=== PATIENT | female | born 1940 | race Caucasian/White ===

== ENCOUNTER 2017-05-18 15:29 | Inpatient (IN) | payer OTHER, BC ==
[~2017-05-18] VITALS: Ht 162.6 cm; Wt 112.5 kg
--- NOTE | ~2017-05-18 | 2DMMODE ---
[facility] [address] [place] [address] 2 D/M-MODE ECHOCARDIOGRAM Name: PILLO CORCORAN Room #: 204-P ADM IN M.R.#: [id number] Admission: 05/18/17 Attend Phys: Tyler Heck, Discharge: Date of : 38 Date of Service: 05/19/17 1254 Report #: [id number] THIS REPORT FOR: //name// APPROVED REPORT Study performed: 05/19/2017 10:37:13 EXAM: Comprehensive 2D, Doppler, and color-flow Echocardiogram Patient Location: Echo lab Room #: 204 Status: routine BSA: 2.17 HR: 130 bpm BP: 99/65 mmHg Other Information Study Quality: Technically Difficult Technically limited study due to body habitus, afib with RVR. Indications Atrial Fibrillation Cardiomyopathy Hypertension/HDD Echo Enhancing Agent Indication: Endocardial border delineation Agent(s) / Amount(s) Used: Optison 4 cc 2D Dimensions RVDd: 40.10 mm LVEF(%): 37.69 (>50%) IVSd: 13.93 (7-11mm) LVOT Diam: 16.42 (18-24mm) LVDd: 47.44 mm PWd: 16.10 (7-11mm) Ascending Ao: 33.62 (22-36mm) LVDs: 38.82 (25-40mm) Aortic Root: 23.65 mm IVC: 20.00 mm Guerrero's LVEF: 37.69 % Volumes Left Atrial Volume (Systole) Single Plane 4CH: 98.62 mL Single Plane 2CH: 73.98 mL LA ESV Index: 42.00 mL/m2 Aortic Valve AoV Peak Alvarado.: 1.61 m/s [facility] [place] [address] [place] [address] 2 D/M-MODE ECHOCARDIOGRAM Name: PILLO CORCORAN Room #: 204-P [facility] IN .R.#: [id number] Admission: 05/18/17 Attend Phys: Tyler Heck, Discharge: Date of : 38 Date of Service: 05/19/17 1254 Report #: [id number] AO Peak Gr.: 10.32 mmHg LVOT Max P.35 mmHg LVOT Max V: 0.91 m/s MILES Vmax: 1.21 cm2 Mitral Valve MV Decel. Time: 119.87 ms MV E Max Alvarado.: 1.32 m/s Pulmonary Valve PV Peak Alvarado.: 0.85 m/s PV Peak Gr.: 2.91 mmHg Tricuspid Valve TR Peak Alvarado.: 2.98 m/s RAP Estimate: 5.00 mmHg TR Peak Gr.: 35.42 mmHg PA Pressure: 40.00 mmHg Left Ventricle The left ventricle is normal size. There is normal LV segmental wall motion. Mild to moderate concentric left ventricular hypertrophy. The overall left ventricular systolic function appears normal. LVEF is 50-55%. This study is not technically sufficient to allow evaluation of the LV diastolic function due to atrial fibrillation. Right Ventricle The right ventricle is normal size. The right ventricular systolic function is normal. Atria Left atrium is dilated. Right atrium is dilated. Aortic Valve The aortic valve is normal in structure. No aortic regurgitation is present. There is no aortic valvular stenosis. Mitral Valve Mild mitral annular calcification. Moderate mitral regurgitation. No evidence of mitral valve stenosis. Tricuspid Valve The tricuspid valve is normal in structure. Moderate tricuspid regurgitation. Pulmonic Valve Pulmonic valve is not well visualized. Great Vessels [facility] [address] [place] [address] 2 D/M-MODE ECHOCARDIOGRAM Name: PILLO CORCORAN Room #: 204-P [facility] IN M.R.#: [id number] Admission: 05/18/17 Attend Phys: Tyler Heck, Discharge: Date of : 38 Date of Service: 05/19/17 1254 Report #: [id number] The aortic root is normal in size. IVC is upper limits of normal in size and collapses >50% with inspiration. Pericardium There is no pericardial effusion. <Conclusion> The overall left ventricular systolic function appears normal. There is normal LV segmental wall motion. LVEF is 50-55%. Both atria are dilated. The aortic valve is normal in structure. No aortic regurgitation or insufficiency Mild mitral annular calcification. Moderate mitral regurgitation. There is no pericardial effusion. <ELECTRONICALLY SIGNED> By: Panflio Macdonald MD, FACC 05/19/17 1254 1254 1254 Panfilo Macdonald MD, FACC /INF
--- NOTE | ~2017-05-18 | TEE ---
[facility] [place] [address] TRANSESOPHAGEAL ECHOCARDIOGRAM Name: PILLO CORCORAN Room #: 204-P [facility] IN M.R.#: [id number] Admission: 05/18/17 Attend Phys: Tyler Heck, Discharge: Date of : 38 Date of Service: 05/20/17 0933 Report #: [id number] THIS REPORT FOR: //name// APPROVED REPORT Study performed: 05/20/2017 08:19:52 EXAM: Comprehensive 2D, Doppler, and color-flow Echocardiogram Patient Location: holding Room #: 9 Status: routine BSA: 2.17 HR: 131 bpm BP: 101/42 mmHg Other Information Study Quality: Excellent Indications Atrial Fibrillation Echo Enhancing Agent Indication: Rule out Shunt Agent(s) / Amount(s) Used: Agitated Saline 7 cc Procedure After obtaining informed consent, patient underwent transesophageal echo in the [employer]. Type of Sedation : Conscious Sedation Sedation was administered by Lin Bess RN. Sedation start time: 849 Case end Time: 857 Versed (2 mg) Fentanyl (50 mcg) Echo enhancement indication: R/O Septal defect. Echo enhancement agent administered: Agitated Saline The JONN was performed without complications. Throughout the procedure, the blood pressure, pulse oximetry, cardiac rhythm, and rate were monitored. The patient tolerated the procedure without adverse effects. Recovery from conscious sedation was uneventful and vital signs were stable. Left Ventricle The left ventricle is normal size. There is normal LV segmental wall motion. Mild concentric left ventricular hypertrophy. The left [facility] [address] [place] [address] TRANSESOPHAGEAL ECHOCARDIOGRAM Name: NILO,PILLO Room #: 204-P [facility] IN M.R.#: [id number] Admission: 05/18/17 Attend Phys: Tyler Heck, Discharge: Date of : 38 Date of Service: 05/20/17 0933 Report #: [id number] ventricular systolic function is normal. The left ventricular ejection fraction is within the normal range. LVEF is 50-55%. Right Ventricle The right ventricle is normal size. The right ventricular systolic function is normal. Atria Left atrium is dilated. No masses or clots in left atrium or left atrial appendage Small amount of bidirectional shunting in the region of the fossa ovalis consistent with patent foramen ovale Right atrium is dilated. Aortic Valve The aortic valve is trileaflet, minimally sclerotic Trace aortic regurgitation. There is no aortic valvular stenosis. Mitral Valve Mild mitral annular calcification Moderate mitral regurgitation. No evidence of mitral valve stenosis. Tricuspid Valve The tricuspid valve is normal in structure. There is mild to moderate tricuspid regurgitation. The right atrial pressure is estimated at mmHg. Pulmonic Valve The pulmonary valve is normal in structure. There is no pulmonic valvular regurgitation. Great Vessels The aortic root is normal in size. The ascending aorta is normal in size. Pericardium There is no pericardial effusion. <Conclusion> The left ventricular systolic function is normal. There is normal LV segmental wall motion. LVEF is 50-55%. Marked biatrial enlargement. No masses or clots in left atrium or left atrial appendage Small amount of bidirectional shunting in the region of the fossa ovalis consistent with patent foramen ovale The aortic valve is trileaflet, minimally sclerotic, no stenosis. [facility] [address] [place] [address] TRANSESOPHAGEAL ECHOCARDIOGRAM Name: NILO,PILLO Room #: 204-P ADM IN M.R.#: [id number] Admission: 05/18/17 Attend Phys: Tyler Heck, Discharge: Date of : 38 Date of Service: 05/20/17932 Report #: [id number] Trace aortic regurgitation. Mild mitral annular calcification. Moderate mitral regurgitation. There is no pericardial effusion. <ELECTRONICALLY SIGNED> By: Panfilo Macdonald MD, FACC 05/20/17932 2 2 Panfilo Macdonald MD, FACC /INF
--- NOTE | ~2017-05-18 | CATHLAB ---
[facility] [place] [address] INVASIVE PROCEDURE REPORT Name: PILLO CORCORAN Room #: 204-P ADM IN M.R.#: [id number] Admission: 05/18/17 Attend Phys: Tyler Heck, Discharge: Date of : 38 Date of Service: 05/20/17912 Report #: [id number] THIS REPORT FOR: //name// CC: Panfilo Heck PROCEDURE: Atrial fibrillation. PROCEDURE: The potential benefits and risks of the procedure were discussed at length with the patient who understood. Full written and informed consent was obtained. The patient was sedated with intravenous Versed and fentanyl. 100 biphasic joules were applied to the chest with prompt conversion of atrial fibrillation to sinus rhythm. She remained in hemodynamically, electrically and neurologically stable condition following the procedure and was transported back to her hospital room. <ELECTRONICALLY SIGNED> By: Panfilo Macdonald MD, FACC 05/21/1732 2 8 Panfilo Macdonald MD, FACC /nt
--- NOTE | ~2017-05-18 | HC ---
[facility] [place] [address] [place] [address] CONSULTATION Name: PILLO COLLADO Room #: 204-P ADM IN M.R.#: [id number] Admission: 05/18/17 Attend Phys: Tyler Heck DO Discharge: Date of : 38 Report #: [id number] THIS REPORT FOR: //name// CC: Panfilo Heck REASON FOR CONSULTATION: Atrial fibrillation. HISTORY OF PRESENT ILLNESS: The patient is a 76-year-old woman with history of dyslipidemia and hypertension. Last , she presented with a 1-week history of increasing shortness of breath. She was seen by Dr. Julien De La Rosa who noted atrial fibrillation with a rapid ventricular response. She was admitted for further evaluation. Despite intravenous Cardizem, her heart rates were fast and difficult to control. She was subsequently transferred for further evaluation. She has received intravenous diuretic therapy during her [facility] hospitalization. She denies fevers, chills or night sweats. She denies chest heaviness or pressure. There is a family history of cardiomyopathy, details are uncertain, although the daughter has a history of atrial fibrillation as did probably Mr. Collado's father. The granddaughter has cardiomyopathy. SHE HAS AN INTOLERANCE TO PENICILLIN, SIMVASTATIN AND POSSIBLY CARDIZEM. HOME MEDICATIONS: Include metoprolol 50 mg twice daily; oxybutynin; atorvastatin 10 mg Mondays, Wednesdays, Fridays; Lasix 20 mg as needed; losartan 50 mg daily; alendronate. PAST HISTORY: Medical records have been reviewed and include history of hiatal hernia surgery, cholecystectomy, dyslipidemia. SOCIAL HISTORY: She is a nonsmoker, nondrinker. FAMILY HISTORY: Unremarkable for premature coronary disease, although is notable for cardiomyopathy. REVIEW OF SYSTEMS: All systems negative except as that noted above. PHYSICAL EXAMINATION: GENERAL: A pleasant woman who is alert and in no distress. VITAL SIGNS: Blood pressure is 120/72, heart rate of 120 and irregular, saturations are 100% on room air, temperature is 99.4 degrees. HEENT: There are neither xanthelasma, subcutaneous xanthomata, oral mucosal or digital cyanosis or kyphoscoliosis present. CHEST: Clear to auscultation and percussion. CARDIAC: Reveals an irregularly irregular rhythm with normal S1, S2. ABDOMEN: Soft and nontender. EXTREMITIES: With trace edema. Radial pulses are 2+. NEUROLOGIC: She is alert with a nonfocal exam. [facility] [address] [place] [address] CONSULTATION Name: PILLO COLLADO Room #: 204-P [facility] IN M.R.#: [id number] Admission: 05/18/17 Attend Phys: Tyler Heck DO Discharge: Date of : 39 Report #: [id number] LABORATORY DATA: EKG, atrial fibrillation with right bundle-branch block. Echocardiogram report from [facility] demonstrated an ejection fraction of 40% with biatrial enlargement, [id number] mitral regurgitation was present and a pulmonary artery pressure of about 40 mmHg. IMPRESSION: 1. Cardiomyopathy. 2. Chronic systolic heart failure. 3. Atrial fibrillation with a rapid ventricular response of uncertain chronicity. 4. Dyslipidemia. 5. Nausea, possibly related to right heart failure. 6. 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 RECOMMENDATIONS: 1. Change from metoprolol to carvedilol, resume losartan. 2. Lifelong anticoagulant therapy in light of her elevated CHADS-VASc score. 3. Consider cardioversion if unable to achieve adequate rate control. In this setting, I believe that there is a high likelihood of recurrent atrial dysrhythmias even with antiarrhythmic therapy. This atrial dysrhythmia was largely asymptomatic. Thank you for asking me to participate in her care. <ELECTRONICALLY SIGNED> By: Panfilo Macdonald MD, FACC 05/19/17 0908 1716 17 Panfilo Macdonald MD, FACC /nt
[2017-05-18 15:45] VITALS: BP 120/72
[2017-05-18] MEDS ORDERED: ONDANSETRON HCL4 M2 IV PUSH (16:20)
[2017-05-18] MEDS ORDERED: ACETAMINOPHEN-1 EAC1 PO (16:21)
[2017-05-18] MEDS ORDERED: LIPITOR10 MG PO (16:26)
[2017-05-18] MEDS ORDERED: COLACE100 MG PO (16:26)
[2017-05-18] MEDS ORDERED: FLONASE 0.05%50 MCG NASAL (16:28)
[2017-05-18] MEDS ORDERED: LOPRESSOR50 PO (16:29)
[2017-05-18] MEDS ORDERED: OXYBUTYNIN 5 MG5 M2 PO (16:29)
[2017-05-18] MEDS ORDERED: PROTONIX40 M1 PO (16:30)
[2017-05-18] MEDS ORDERED: LASIX 20 MG TAB20 MG PO (16:30)
[2017-05-18] MEDS ORDERED: ENOXAPARIN40 MG/0.1 SUBQ (16:31)
[2017-05-18] MEDS ORDERED: COMPAZINE10 MG IV (16:31)
[2017-05-18 19:35] LABS: URINE BILIRUBIN NEGATIVE (Negative); URINE BLOOD NEGATIVE (Negative); URINE CLARITY CLEAR; URINE COLOR YELLOW; URINE GLUCOSE-RANDOM* NEGATIVE (Negative); URINE KETONES NEGATIVE (Negative); URINE LEUKOCYTES NEGATIVE (Negative); URINE NITRITE NEGATIVE (Negative); URINE PROTEIN (DIPSTICK) TRACE (Negative); URINE SPECIFIC GRAVITY 1.025 (1.005-1.035); URINE UROBILINOGEN 0.2 E.U./dl (0.2-1.0)
[2017-05-18 19:59] LABS: HEMATOCRIT 36.3 % (37.0-47.0); HEMOGLOBIN 12.5 gm/dL (12.0-15.0); MCH 29.7 pg (26.0-34.0); MCHC 34.6 g/dL (28.0-37.0); MCV 85.8 fL (80.0-100.0); RBC 4.23 mil/uL (4.20-5.00); RDW 14.6 % (10.5-14.5); WBC 6.6 thou/uL (4.0-11.0)
[2017-05-18 20:14] LABS: ANION GAP 9 mmol/L (7-16); BUN 35 mg/dL (7-18); CALCIUM 7.6 mg/dL (8.5-10.1); CHLORIDE 101 mmol/L (98-107); CO2 26 mmol/L (21-32); CREATININE 1.1 mg/dL (0.6-1.0); GLUCOSE 133 mg/dL (74-106); POTASSIUM 3.8 mmol/L (3.5-5.1); SODIUM 136 mmol/L (136-145)
[2017-05-18 20:18] LABS: ALBUMIN 2.2 g/dL (3.4-5.0); SGOT 26 U/L (15-37); SGPT 38 U/L (30-65); TOTAL BILIRUBIN 1.2 mg/dL (<0.1-1.0); TOTAL PROTEIN 5.5 g/dL (6.4-8.2); TROPONIN-I < 0.04 ng/mL (<0.06)
[2017-05-18 20:45] VITALS: BP 130/59
[2017-05-18 23:20] VITALS: BP 93/46
[2017-05-19 01:16] VITALS: BP 93/48
[2017-05-19 03:50] LABS: CALCIUM 7.3 mg/dL (8.5-10.1); CREATININE 1.1 mg/dL (0.6-1.0); POTASSIUM 3.6 mmol/L (3.5-5.1)
[2017-05-19 03:56] LABS: HEMATOCRIT 32.2 % (37.0-47.0); HEMOGLOBIN 11.2 gm/dL (12.0-15.0); MCH 29.9 pg (26.0-34.0); MCHC 34.6 g/dL (28.0-37.0); MCV 86.5 fL (80.0-100.0); RBC 3.73 mil/uL (4.20-5.00); RDW 14.6 % (10.5-14.5); WBC 5.7 thou/uL (4.0-11.0)
[2017-05-19 05:11] VITALS: BP 102/63
[2017-05-19 08:00] VITALS: BP 99/65
[2017-05-19 12:00] VITALS: BP 111/61
[2017-05-19 16:00] VITALS: BP 98/56
[2017-05-19 17:54] LABS: CALCIUM 7.3 mg/dL (8.5-10.1); MAGNESIUM 2.1 mg/dL (1.8-2.4); POTASSIUM 3.9 mmol/L (3.5-5.1)
[2017-05-19 19:55] VITALS: BP 118/78
[2017-05-20] VITALS (7 sets, daily range): BP systolic 88–122; BP diastolic 43–59
[2017-05-20 04:32] LABS: HEMATOCRIT 33.5 % (37.0-47.0); HEMOGLOBIN 11.4 gm/dL (12.0-15.0); MCH 29.3 pg (26.0-34.0); MCHC 34.1 g/dL (28.0-37.0); MCV 85.8 fL (80.0-100.0); RBC 3.9 mil/uL (4.20-5.00); RDW 14.2 % (10.5-14.5); WBC 6.7 thou/uL (4.0-11.0)
[2017-05-20 04:48] LABS: CALCIUM 7.4 mg/dL (8.5-10.1); CREATININE 0.9 mg/dL (0.6-1.0); POTASSIUM 4.3 mmol/L (3.5-5.1)
[2017-05-21 04:29] VITALS: BP 129/64
[2017-05-21 07:30] VITALS: BP 160/83
[2017-05-21 11:15] VITALS: BP 125/72
[2017-05-21 15:25] VITALS: BP 144/66
[2017-05-21 20:25] VITALS: BP 138/61
[2017-05-22 04:17] LABS: CALCIUM 8.2 mg/dL (8.5-10.1); CREATININE 0.9 mg/dL (0.6-1.0)
[2017-05-22 04:44] VITALS: BP 143/50
[2017-05-22 07:45] VITALS: BP 133/61
[2017-05-22 11:34] VITALS: BP 117/47
[2017-05-22 15:47] VITALS: BP 113/61
[2017-05-22 19:42] VITALS: BP 123/53
[2017-05-23] VITALS (7 sets, daily range): BP systolic 129–176; BP diastolic 52–77
[2017-05-23] MEDS ORDERED: MIRALAX17 GM PO (10:14)
[2017-05-23] MEDS ORDERED: CARVEDILOL12.5 MG PO (10:14)
[2017-05-23] MEDS ORDERED: ELIQUIS5 MG PO (10:14)
[2017-05-23] MEDS ORDERED: COZAAR 50 MG TA50 M2 PO (10:14)
[2017-05-23] MEDS ORDERED: PACERONE 200 M200 M1 PO ×2 (10:14)
== END 2017-05-23 17:23 | disposition home or self-care (01) | DRG 291 ==
LOC: 2N 15:29 → ENTRNSPT 05-23 16:57 → 2N 05-23 17:23
PROVIDERS: Hospitalist; Internal Medicine
PROC: 5A2204Z Restoration of Cardiac Rhythm, Single (ICD-10-PCS; principal; 2017-05-20)
PROC: B24BZZ4 Ultrasonography of Heart with Aorta, Transesophageal (ICD-10-PCS; 2017-05-20)
DX: I11.0 Hypertensive heart disease with heart failure (principal); E43 Unspecified severe protein-calorie malnutrition; Z68.41 Body mass index [BMI] 40.0-44.9, adult; I48.91 Unspecified atrial fibrillation; I50.33 Acute on chronic diastolic (congestive) heart failure; I50.22 Chronic systolic (congestive) heart failure; E78.5 Hyperlipidemia, unspecified; I42.9 Cardiomyopathy, unspecified; I34.0 Nonrheumatic mitral (valve) insufficiency; Z90.49 Acquired absence of other specified parts of digestive tract; Z82.49 Family history of ischemic heart disease and other diseases of the circulatory system; Z88.8 Allergy status to other drugs, medicaments and biological substances; Z88.0 Allergy status to penicillin
CPT/HCPCS: 10081

== ENCOUNTER 2017-12-09 09:25 | Observation (INO) | payer OTHER, BC ==
[~2017-12-09] VITALS: Ht 165.1 cm; Wt 100.9 kg
--- NOTE | ~2017-12-09 | D ---
[facility] [address] [address] DISCHARGE SUMMARY Name: PILLO CORCORAN Room #: 214-P [facility] Joanie Montanez#: [id number] Admission: 12/09/17 Attend Phys: Toan Fernandez MD Discharge: 12/10/17 Date of : 39 Report #: [id number] THIS REPORT FOR: //name// CC: Panfilo Fernandez DISCHARGE DIAGNOSES: 1. Sick sinus syndrome. 2. Tachycardia-bradycardia syndrome. 3. Atrial fibrillation. 4. Complete heart block. HISTORY OF PRESENT ILLNESS: The patient is a 77-year-old female with a history diastolic heart failure and atrial fibrillation, recently cardioverted on amiodarone and beta-molly therapy. She now has symptomatic bradycardia. Beta-molly and amiodarone have been discontinued due to her bradycardia and therefore is here for dual chamber pacemaker implantation. The pacemaker was implanted without issues. She underwent a [employer] dual chamber device. HOSPITAL COURSE: The patient was monitored on telemetry overnight and did well with no documented arrhythmias. On the day of discharge, the patient was doing well with no chest pain, shortness of breath. On physical exam, heart was regular rate and rhythm. Lungs were clear to auscultation bilaterally. Incision was healing nicely and she had no lower extremity edema. On telemetry, she remained in atrial paced rhythm as well as some ventricular pacing. Device interrogation showed normal device function. A chest x-ray showed stable lead placement with no evidence of pneumothorax. As such, she was deemed stable for discharge home. Discharge instructions were reviewed. She will resume her carvedilol and amiodarone. She will also resume her Eliquis on Friday. By: 0839 [id number] Toan Fernandez MD /nt
--- NOTE | ~2017-12-09 | P ---
[facility] [place] [address] PROCEDURE REPORT Name: PILLO CORCORAN Room #: 214-P [facility] M.RJuan Jose#: [id number] Admission: 12/09/17 Attend Phys: Toan Fernandez MD Discharge: 12/10/17 Date of : 39 Report #: [id number] THIS REPORT FOR: //name// CC: Panfilo Fernandez DATE OF SERVICE: 12/10/2017 PREOPERATIVE DIAGNOSES: 1. Sick sinus syndrome. 2. A 2:1 heart block. POSTOPERATIVE DIAGNOSES: 1. Sick sinus syndrome. 2. Third-degree heart block. HISTORY: The patient is a 77-year-old with a history of diastolic heart failure as well as atrial fibrillation with rapid ventricular response recently cardioverted and now with symptomatic sinus bradycardia. She requires beta blockers and amiodarone for maintenance of sinus rhythm and therefore is here for a dual chamber pacemaker implantation. She also has documented 2:1 heart block on a laboratory monitor. ANESTHESIA: The patient underwent MAC anesthesia with no anesthesia related complications. DESCRIPTION OF PROCEDURE: The patient underwent informed consent. We discussed the details of the procedure including the risks, which include, but not limited to bleeding, infection, vascular damage, cardiac perforation, pneumothorax. She understood these risks and is willing to proceed. The patient was brought to the EP laboratory in a fasting and unsedated state, prepped and draped in a sterile fashion, received IV antibiotics prior to initiation of the procedure and underwent a venogram showing patency of the left axillary vein. Next, I injected lidocaine at the incision site. Incision was made, a pocket was created over the prepectoral fascia and access was obtained twice the left axillary vein using the extrathoracic approach with sheaths positioned using the modified Seldinger technique. Next, a lead was positioned in the right ventricular apex with adequate pacing and sensing thresholds and an atrial lead was positioned in the right atrial appendage with adequate pacing and sensing thresholds. Of note, when I would pace the atrium, there was evidence of complete heart block. The leads were sutured to prepectoral fascia using Ethibond suture. The pacemaker was connected and the pocket was irrigated with vancomycin. The pocket was closed in 3 layers using 2-0 for the deep layer, 3-0 for the mid layer, 4-0 for the subcuticular layer and surgical glue [address] [address] PROCEDURE REPORT Name: PILLO CORCORANA Room #: 214-P LILLIAN Montanez#: [id number] Admission: 12/09/17 Attend Phys: Toan Fernandez MD Discharge: 12/10/17 Date of : 39 Report #: [id number] was placed to the outer skin layer. The patient awoke neurologically and hemodynamically intact. No complications and no significant bleeding. The implanted pacemaker was a [employer] model number [id number], serial number [id number]. The atrial lead was a [employer] model number 2088TC, 52 cm, serial number [id number] with a P-wave of 3.2 millivolts, pacing impedance of 438 ohms and the pacing threshold 1.3 volts at 0.4 milliseconds. The RV lead was a [employer] model number 2088TC, 58 cm, serial number [id number] with an R-wave of 5.2 millivolts, pacing impedance of 540 ohms and the pacing threshold of 0.7 volts at 0.4 milliseconds. The device was programmed to the DDDR 60-130 mode. CONCLUSIONS: 1. Successful dual chamber pacemaker implantation. 2. Satisfactory atrial and ventricular pacing and sensing thresholds. By: 0837 1938 Toan Fernandez MD /nt
[~2017-12-09 09:25] MED LIST: ACETAMINOPHEN-1 EAC1 PO; CARVEDILOL12.5 MG PO; COLACE100 MG PO; COMPAZINE10 MG IV; COZAAR 50 MG TA50 M2 PO; ELIQUIS5 MG PO; ENOXAPARIN40 MG/0.1 SUBQ; FLONASE 0.05%50 MCG NASAL; LASIX 20 MG TAB20 MG PO; LIPITOR10 MG PO; LOPRESSOR50 PO; MIRALAX17 GM PO; ONDANSETRON HCL4 M2 IV PUSH; OXYBUTYNIN 5 MG5 M2 PO; PACERONE 200 M200 M1 PO; PROTONIX40 M1 PO
[2017-12-09] MEDS ORDERED: POTASSIUM20 PO (10:19)
[2017-12-09] MEDS ORDERED: TIROSINT100 MCG PO (10:20)
[2017-12-09] MEDS ORDERED: BENADRYL25 MG PO (10:20)
[2017-12-09 10:21] VITALS: BP 195/93
[2017-12-09 10:37] LABS: HEMATOCRIT 37.8 % (37.0-47.0); HEMOGLOBIN 12.9 gm/dL (12.0-15.0); MCH 29.1 pg (26.0-34.0); MCV 85.6 fL (80.0-100.0); RBC 4.41 mil/uL (4.20-5.00); RDW 13.7 % (10.5-14.5); WBC 9.4 thou/uL (4.0-11.0)
[2017-12-09 10:45] LABS: CALCIUM 9.5 mg/dL (8.5-10.1); CREATININE 1.3 mg/dL (0.6-1.0); POTASSIUM 3.8 mmol/L (3.5-5.1)
[2017-12-09 10:47] LABS: APTT 27.6 Seconds (24.5-32.8); PROTIME 10.7 Seconds (9.3-11.4)
[2017-12-09 19:09] VITALS: BP 136/53
[2017-12-10 00:08] VITALS: BP 130/39
[2017-12-10 04:51] VITALS: BP 132/48
[2017-12-10] MEDS ORDERED: COREG6.25 MG PO (08:30)
[2017-12-10] MEDS ORDERED: PACERONE 200 M200 M1 PO (08:30)
[2017-12-10 08:34] VITALS: BP 151/73
[2017-12-10 08:38] VITALS: BP 151/73
== END 2017-12-10 10:24 | disposition home or self-care (01) ==
LOC: CATH 09:25 → 2N 14:30
PROVIDERS: Internal Medicine Cardiovascular Disease
DX: I49.5 Sick sinus syndrome (principal); I44.2 Atrioventricular block, complete; I48.91 Unspecified atrial fibrillation; I50.30 Unspecified diastolic (congestive) heart failure
CPT/HCPCS: 62110; 62900; 70005

== ENCOUNTER → 2018-11-12 | Outpatient (CLI) | payer OTHER, BC ==
[~2018-11-12] MED LIST changes: +BENADRYL25 MG PO; +COREG6.25 MG PO; +POTASSIUM20 PO; +TIROSINT100 MCG PO
== END ==
LOC: HYPER 11-06 11:22
DX: S80.12XA Contusion of left lower leg, initial encounter (principal); R60.0 Localized edema; E78.5 Hyperlipidemia, unspecified; G47.33 Obstructive sleep apnea (adult) (pediatric); I11.0 Hypertensive heart disease with heart failure; I50.32 Chronic diastolic (congestive) heart failure; I48.0 Paroxysmal atrial fibrillation; Z90.49 Acquired absence of other specified parts of digestive tract; Z79.01 Long term (current) use of anticoagulants; Z90.710 Acquired absence of both cervix and uterus; Z95.0 Presence of cardiac pacemaker; X58.XXXA Exposure to other specified factors, initial encounter; Y93.89 Activity, other specified; Y92.89 Other specified places as the place of occurrence of the external cause; Y99.8 Other external cause status

== ENCOUNTER → 2018-12-03 | Outpatient (CLI) | payer OTHER, BC | LOC: HYPER 06:56 | DX: S80.12XD Contusion of left lower leg, subsequent encounter (principal); E78.5 Hyperlipidemia, unspecified; I11.0 Hypertensive heart disease with heart failure; I50.32 Chronic diastolic (congestive) heart failure; I48.0 Paroxysmal atrial fibrillation; R60.0 Localized edema; G47.33 Obstructive sleep apnea (adult) (pediatric); Z90.49 Acquired absence of other specified parts of digestive tract; Z90.710 Acquired absence of both cervix and uterus; Z79.01 Long term (current) use of anticoagulants; X58.XXXD Exposure to other specified factors, subsequent encounter ==

== ENCOUNTER → 2019-06-25 | Outpatient (CLI) | payer OTHER, BC | LOC: SJCVCIMAG 08:57 | DX: I08.3 Combined rheumatic disorders of mitral, aortic and tricuspid valves (principal); I11.0 Hypertensive heart disease with heart failure; I50.32 Chronic diastolic (congestive) heart failure; I48.0 Paroxysmal atrial fibrillation; R53.1 Weakness; E78.5 Hyperlipidemia, unspecified; G47.33 Obstructive sleep apnea (adult) (pediatric); Z79.01 Long term (current) use of anticoagulants; Z82.49 Family history of ischemic heart disease and other diseases of the circulatory system; Z79.899 Other long term (current) drug therapy; Z95.0 Presence of cardiac pacemaker ==

== ENCOUNTER 2020-09-20 16:42 | Inpatient (IN) | payer OTHER, BC ==
[~2020-09-20] VITALS: Ht 152.4 cm; Wt 96.6 kg
[~2020-09-20 16:42] MED LIST changes: -ASA81BEC PO; -BENICAR40 MG PO; -CYCLOBENZAPRINE5 MG PO; -DEMADEX20 MG PO; -DICLOFENAC SOD100 G1 TOP; -GABAPENTIN 100100 MG PO; -KLOR-CON 1010 MEQ PO; -NORVASC5 MG PO; -TORSEMIDE20 MG PO; -VITAMIN D350 MC3 PO
[2020-09-20 16:59] VITALS: BP 165/61
[2020-09-20] MEDS ORDERED: TORSEMIDE20 MG PO (17:44)
[2020-09-20] MEDS ORDERED: BENICAR40 MG PO (17:44)
[2020-09-20] MEDS ORDERED: KLOR-CON 1010 MEQ PO (17:45)
[2020-09-20 18:13] LABS: ABSOLUTE NEUTROPHILS 6.1 thou/uL (1.4-8.2); BASOPHILS 0.8 % (0.0-2.0); EOSINOPHILS 5.2 % (0.0-3.0); HEMATOCRIT 33.9 % (37.0-47.0); HEMOGLOBIN 11.4 gm/dL (12.0-15.0); LYMPHOCYTES 19.5 % (24.0-44.0); MCH 29.6 pg (26.0-34.0); MCHC 33.7 g/dL (28.0-37.0); MCV 87.8 fL (80.0-100.0); MONOCYTES 6.9 % (1.0-8.0); PLATELET COUNT 221 thou/uL (150-400); POLYS 67.6 % (36.0-66.0); RBC 3.86 mil/uL (4.20-5.00); RDW 13.5 % (10.5-14.5); WBC 9.1 thou/uL (4.0-11.0)
[2020-09-20 18:20] LABS: ANION GAP 8 mmol/L (7-16); BUN 42 mg/dL (7-18); CALCIUM 8.7 mg/dL (8.5-10.1); CHLORIDE 104 mmol/L (98-107); CO2 26 mmol/L (21-32); GLUCOSE 111 mg/dL (74-106); POTASSIUM 4.4 mmol/L (3.5-5.1); SODIUM 138 mmol/L (136-145)
[2020-09-20 18:30] LABS: ALBUMIN 3.4 g/dL (3.4-5.0); SGOT 26 U/L (15-37); SGPT 34 U/L (14-59); TOTAL BILIRUBIN 0.6 mg/dL (0.2-1.0); TOTAL PROTEIN 7.3 g/dL (6.4-8.2); TROPONIN-I <0.06 ng/mL (<0.06)
[2020-09-20 18:40] LABS: URINE BILIRUBIN NEGATIVE (Negative); URINE BLOOD NEGATIVE (Negative); URINE CLARITY CLEAR; URINE COLOR YELLOW; URINE GLUCOSE-RANDOM* NEGATIVE (Negative); URINE KETONES NEGATIVE (Negative); URINE LEUKOCYTES-REFLEX NEGATIVE (Negative); URINE NITRITE-REFLEX NEGATIVE (Negative); URINE PROTEIN (DIPSTICK) NEGATIVE (Negative); URINE SPECIFIC GRAVITY 1.015 (1.005-1.035); URINE UROBILINOGEN 0.2 E.U./dl (0.2-1.0)
--- NOTE | 2020-09-21 07:15 | EKG ---
[place] [address] [facility] [place] [address] ELECTROCARDIOGRAM REPORT Name: PILLO CORCORAN Room #: 170-10 ADM IN M.R.#: [id number] Admission: 09/20/20 Attend Phys: Eulogio Javier MD Discharge: Date of : 39 Report #: [id number] [facility] ED Test Date: 2020-09-20 Test Time: 17:07:51 Pat Name: PILLO CORCORAN Department: Room: 170 Gender: F Corrections Nurse: LEÓN : 1940 Requested By: Carson Barron Order Number: [id number] MD: Yasir Napoles Measurements Intervals [place] Rate: 60 P: 129 UT: 198 QRS: -62 QRSD: 165 T: 95 QT: 486 QTc: 486 Interpretive Statements Atrial-ventricular dual-paced complexes No further analysis attempted due to paced rhythm No previous ECG available for comparison Electronically Signed On 09-21-2020 7:15:25 CDT by Yasir Napoles [email or web address] <ELECTRONICALLY SIGNED> By: Yasir Napoles MD, [facility] 09/21/20 0715 1707 06 Yasir Napoles MD, FAC /EPI
[2020-09-21 08:05] VITALS: BP 144/61
--- NOTE | 2020-09-21 09:24 | NUR ---
ASSESSMENT: CM REVIEWED CHART AND MET WITH PATIENT AT THE BEDSIDE ALONG WITH HER SON WENDY AND HIS AND DAUGHTER. PT WAS ADMITTED DUE TO INCREASED WEAKNESS. PTS SON REPORTS THEY WERE RECENTLY AT [facility] AND THEN WENT TO [facility] WHERE THEY WERE LESS THEN PLEASED. HE REPORTS PT WAS THERE 2 DAYS WITHOUT ANY THERAPY AND THEN LEFT AMA. PT REPORTS SHE IS WILLING TO GO TO SNF/REHAB IF NEEDED BUT NOT BACK THERE. PT REPORTS SHE HAS ALSO HAD [facility] IN THE PAST AND REALLY LIKED THEM. PT REPORTS LIVING IN A HOME ALONE. PT REPORTS HAVING A RAMP TO ENTER THE HOME AND IT IS HANDICAP ACCESSIBLE. PT REPORTS USING A WALKER FOR AMBULATION. PT STATES SHE HAS A GRAB BAR AND CHAIR IN THE SHOWER. PT IS HAVING AN ECHO. CM DISCUSSED THAT CM WILL REVISIT WITH FAMILY ONCE PATIENT HAS WORKED WITH THERAPY AND FURTHER RECOMMENDATIONS AND WILL PROVIDE WITH LIST OF OPTIONS. CM WILL CONTINUE TO FOLLOW TO ASSIST NEEDED.
--- NOTE | 2020-09-21 10:35 | 2DMMODE ---
[facility] [place] [address] 2 D/M-MODE ECHOCARDIOGRAM Name: PILLO CORCORAN Room #: 438-P ADM IN M.R.#: [id number] Admission: 09/20/20 Attend Phys: Eulogio Javier MD Discharge: Date of : 38 Report #: [id number] THIS REPORT FOR: cc: Julien De La Rosa MD, Curtis MD Lundgren,Panfilo Song MD [facility] ~ APPROVED REPORT Study performed: 09/21/2020 09:21:16 EXAM: Comprehensive 2D, Doppler, and color-flow Echocardiogram Patient Location: Bedside Room #: 438 Status: routine BSA: 2.03 HR: 65 bpm BP: 144/61 mmHg Rhythm: Pacemaker Other Information Study Quality: Good Indications Atrial Fibrillation Pacemaker Hypertension/HDD 2D Dimensions RVDd: 48.44 mm IVSd: 12.39 (7-11mm) LVOT Diam: 18.67 (18-24mm) LVDd: 56.87 mm PWd: 11.92 (7-11mm) Ascending Ao: 33.67 (22-36mm) LVDs: 40.29 (25-40mm) Left Atrium: 47.09 (27-40mm) Aortic Root: 28.25 mm IVC: 20.00 mm Volumes Left Atrial Volume (Systole) Single Plane 4CH: 115.38 mL Single Plane 2CH: 73.44 mL LA ESV Index: 48.00 mL/m2 Aortic Valve AoV Peak Alvarado.: 1.88 m/s AO Peak Gr.: 14.20 mmHg LVOT Max P.24 mmHg [facility] [address] [place] [address] 2 D/M-MODE ECHOCARDIOGRAM Name: PILLO CORCORAN Room #: 438-P [facility] IN .R.#: [id number] Admission: 09/20/20 Attend Phys: Marie Coates Discharge: Date of : 38 Report #: [id number] LVOT Max V: 1.25 m/s MILES Vmax: 1.81 cm2 Mitral Valve E/A Ratio: 1.2 MV Decel. Time: 183.91 ms MV E Max Alvarado.: 1.18 m/s MV A Alvarado.: 0.96 m/s MV PHT: 53.33 ms IVRT: 124.57 ms Pulmonary Valve PV Peak Alvarado.: 1.15 m/s PV Peak Gr.: 5.30 mmHg Pulmonary Vein P Vein S: 0.57 m/s P Vein A: 0.30 m/s P Vein D: 0.43 m/s P Vein A Dur.: 101.5 msec P Vein S/D Ratio: 1.33 Tricuspid Valve TR Peak Alvarado.: 2.87 m/s TR Peak Gr.: 32.86 mmHg PA Pressure: 43.00 mmHg Left Ventricle The left ventricle is normal size. There is normal LV segmental wall motion. Mild concentric left ventricular hypertrophy. The left ventricular systolic function is normal. The left ventricular ejection fraction is within the normal range. LVEF is 60-65%. Grade II - pseudonormal filling dynamics. Right Ventricle Right ventricle is dilated. The right ventricular systolic function is normal. Atria Left atrium is dilated. Right atrium is dilated. Aortic Valve The aortic valve is sclerotic. No aortic regurgitation is present. There is no aortic valvular stenosis. Mitral Valve Moderate mitral annular calcification Mild mitral regurgitation. No evidence of mitral valve stenosis. [facility] [place] [address] 2 D/M-MODE ECHOCARDIOGRAM Name: PILLO CORCORAN Room #: 438-P ADM IN M.R.#: [id number] Admission: 09/20/20 Attend Phys: Marie Coates Discharge: Date of : 38 Report #: [id number] Tricuspid Valve The tricuspid valve is normal in structure. There is mild to moderate tricuspid regurgitation. Estimated PAP 40 mmHg. There is moderate pulmonary hypertension. Pulmonic Valve The pulmonary valve is normal in structure. Trace pulmonic regurgitation. Great Vessels The aortic root is normal in size. IVC is dilated and collapses >50% with inspiration. Pericardium There is no pericardial effusion. <Conclusion> The left ventricular systolic function is normal. There is normal LV segmental wall motion. LVEF is 60-65%. Grade II - pseudonormal filling dynamics. Both atria are dilated. The aortic valve is sclerotic. No aortic regurgitation or stenosis Moderate mitral annular calcification. Mild mitral regurgitation. There is mild to moderate tricuspid regurgitation. Estimated pulmonary artery pressure of 40 mmHg. There is no pericardial effusion. <ELECTRONICALLY SIGNED> By: Panfilo Macdonald MD, [facility] 09/21/205 34 34 Panfilo Macdonald MD, FAC /INF
[2020-09-21 16:23] VITALS: BP 142/59
[2020-09-21 19:56] VITALS: BP 126/54
--- NOTE | 2020-09-21 19:58 | NUR ---
Patient alert and orinted x4, up with SBA with walker, on room air, denies any pain, family at bedside throughout the day, tolerating diet well with no nausea, vitals stable, and afbriele. Call light with in reach. Bed alarm and chair alarm on. Will continue to monitor.
[2020-09-22 04:48] LABS: CALCIUM 8.1 mg/dL (8.5-10.1); CREATININE 1.3 mg/dL (0.6-1.0); POTASSIUM 4.1 mmol/L (3.5-5.1)
--- NOTE | 2020-09-22 06:48 | NUR ---
Assumed pt care at 1900. A/OX4,VSS. Up with AX1 RW/GB to bathroom. Denies pain on assessment.Wears a brief,has stress incontinence.No Bm this shift. IVF infusing via LAC IV w/o any problems voiced. Fall precautions in place.
[2020-09-22 09:31] VITALS: BP 118/67
[2020-09-22] MEDS ORDERED: CYCLOBENZAPRINE5 MG PO (09:59)
[2020-09-22] MEDS ORDERED: DICLOFENAC SOD100 G1 TOP (09:59)
[2020-09-22] MEDS ORDERED: NORVASC5 MG PO (09:59)
[2020-09-22] MEDS ORDERED: GABAPENTIN 100100 MG PO (09:59)
[2020-09-22] MEDS ORDERED: ASA81BEC PO (11:23)
--- NOTE | 2020-09-22 12:05 | NUR ---
Discussed during los, ready for dc to acute rehab today. [facility] is able to accept. Bedside nurse to call report to [phone] at discharge to acute rehab.
--- NOTE | 2020-09-22 13:33 | NUR ---
RN gave report to K[facility] on [facility].
== END 2020-09-22 14:00 | DRG 308 ==
LOC: ER 16:42 → EROBS 19:11 → 4S 19:11
PROVIDERS: Emergency Medicine; Internal Medicine; ADMIT Hospitalist; ATTEND Hospitalist
PROC: 5A09357 Assistance with Respiratory Ventilation, Less than 24 Consecutive Hours, Continuous Positive Airway Pressure (ICD-10-PCS; principal; 2020-09-21)
DX: I48.0 Paroxysmal atrial fibrillation (principal); N17.0 Acute kidney failure with tubular necrosis; D68.59 Other primary thrombophilia; I50.42 Chronic combined systolic (congestive) and diastolic (congestive) heart failure; Z68.41 Body mass index [BMI] 40.0-44.9, adult; Z20.822 Contact with and (suspected) exposure to COVID-19; E78.5 Hyperlipidemia, unspecified; M19.90 Unspecified osteoarthritis, unspecified site; E66.9 Obesity, unspecified; K59.00 Constipation, unspecified; Z60.2 Problems related to living alone; R53.81 Other malaise; N32.81 Overactive bladder; R63.8 Other symptoms and signs concerning food and fluid intake; I11.0 Hypertensive heart disease with heart failure; M54.10 Radiculopathy, site unspecified; Z86.19 Personal history of other infectious and parasitic diseases; Z90.49 Acquired absence of other specified parts of digestive tract; Z90.710 Acquired absence of both cervix and uterus; Z88.1 Allergy status to other antibiotic agents; Z88.0 Allergy status to penicillin; Z88.8 Allergy status to other drugs, medicaments and biological substances; Z95.0 Presence of cardiac pacemaker; Z82.49 Family history of ischemic heart disease and other diseases of the circulatory system; Z87.81 Personal history of (healed) traumatic fracture
CPT/HCPCS: 10195

== ENCOUNTER → 2020-09-20 | Outpatient (CLI) | payer OTHER, BC ==
[~2020-09-20] MED LIST changes: +ASA81BEC PO; +BENICAR40 MG PO; +CYCLOBENZAPRINE5 MG PO; +DEMADEX20 MG PO; +DICLOFENAC SOD100 G1 TOP; +GABAPENTIN 100100 MG PO; +KLOR-CON 1010 MEQ PO; +NORVASC5 MG PO; +TORSEMIDE20 MG PO; +VITAMIN D350 MC3 PO
== END ==
LOC: SJCVC 14:59
PROVIDERS: ATTEND Internal Medicine
DX: R94.31 Abnormal electrocardiogram [ECG] [EKG] (principal); I48.91 Unspecified atrial fibrillation; I11.0 Hypertensive heart disease with heart failure; I50.32 Chronic diastolic (congestive) heart failure; I44.1 Atrioventricular block, second degree; R29.6 Repeated falls; R26.81 Unsteadiness on feet; E78.5 Hyperlipidemia, unspecified; Z90.49 Acquired absence of other specified parts of digestive tract; Z90.710 Acquired absence of both cervix and uterus; Z88.0 Allergy status to penicillin; Z88.8 Allergy status to other drugs, medicaments and biological substances; Z79.899 Other long term (current) drug therapy; Z82.49 Family history of ischemic heart disease and other diseases of the circulatory system

== ENCOUNTER 2020-09-22 10:08 | Inpatient (IN) | payer OTHER, BC ==
[~2020-09-22] VITALS: Ht 162.6 cm; Wt 96.2 kg
[~2020-09-22 10:08] MED LIST changes: +BENICAR40 MG PO; +CYCLOBENZAPRINE5 MG PO; +DICLOFENAC SOD100 G1 TOP; +GABAPENTIN 100100 MG PO; +KLOR-CON 1010 MEQ PO; +NORVASC5 MG PO; +TORSEMIDE20 MG PO
[2020-09-22] MEDS ORDERED: ASA81BEC PO (11:23)
[2020-09-22 14:00] VITALS: BP 134/53
--- NOTE | 2020-09-22 14:00 | NUR ---
PT ARRIVED VIW W/C TO ROOM. PT IN APRIL 23 FX LEFT ANKLE. PT STATED SHE DOES HAVE EPISODES OF FALLING DUE TO WEAKNESS AND BALANCE AND SHE STATED DEHYDRATION. PT STATED SHE DOES DRINK WATER AT HOME AND PROPEL. PT STATED SHE LAID THERE FOR SIX HOURS WHEN SHE FEEL. PT STATED SHE WASN'T IN PAIN AND DIDN'T CALL 911. PT STATED SHE WOULD OF CALLED 911 IF SHE WAS IN PAIN. PT HAS HX OF FALLING AT HOME. PT LIVES BY HERSELF AND DOES HAVE NEIGHBORS THAT ASSIST AND ALSO HER SON WENDY IS AVAILABLE. PT USES WALKER TO AMBULATE. PT HAS BRUISES TO ARMS AND WAS ON ELIQUIS. PT HAS PACEMAKER AND HX OF CHF. PT USES CPAP AT HS. PT DIDN'T HAVE HER OWN CPAP HERE. PT WAS A [employer] FOR 31 YEARS. SHE LOST HER TO STROKE AND PASSED 2011.
[2020-09-22 19:30] VITALS: BP 124/50
--- NOTE | 2020-09-23 02:42 | NUR ---
assumed care approx 1900 evening 09/22. pt alert and oriented x4, pleasant and cooperative sitting up in recliner at change of shift. pt denied complaints. pt took hs meds with water tolerating well. pt now in bed with cpap machine on appears to be sleeping soundly. bed alarm on and call light in reach. will continue to monitor.
[2020-09-23 05:04] LABS: HEMATOCRIT 30.5 % (37.0-47.0); HEMOGLOBIN 10.3 gm/dL (12.0-15.0); MCHC 33.7 g/dL (28.0-37.0); RBC 3.43 mil/uL (4.20-5.00); RDW 14.2 % (10.5-14.5); WBC 6.2 thou/uL (4.0-11.0)
[2020-09-23 05:28] LABS: CALCIUM 8.4 mg/dL (8.5-10.1); CREATININE 1.1 mg/dL (0.6-1.0); POTASSIUM 4.4 mmol/L (3.5-5.1)
[2020-09-23 08:00] VITALS: BP 131/65
--- NOTE | 2020-09-23 16:04 | NUR ---
ASSUMED C/O PT AT 0700. PT A&OX4. PT WILLINGLY WORKS WITH THERAPIES. PT. UP WITH SBA, GB, AND WALKER. PT. C/O PAIN TO LEFT ANKLE, PAIN PILLS OFFERED BUT REFUSED. PT. DOES NOT WANT TO USE THE VOLTERAN GEL. PT USES CALL LIGHT APPROPRIATELY. BED ALARMS AND CHAIR ALARMS ACTIVATED. PT. ON RA, TOLERATING HEART HEALTHY DIET. WILL CONTINUE TO MONITOR.
[2020-09-23 19:24] VITALS: BP 135/60
--- NOTE | 2020-09-24 01:31 | NUR ---
assumed care approx 1900 evening 09/23. pt alert and oriented x4, however forgetful at times. pt pleasant and cooperative. pt took hs med with water tolerating well. pt appears to be sleeping soundly with cpap machine on. bed alarm on and call light in reach. will continue to monitor.
[2020-09-24 10:23] VITALS: BP 101/50
--- NOTE | 2020-09-24 16:36 | NUR ---
ASSUMED C/O PT AT 0700. PT. A&OX4. PT UP TO BATHROOM, BRUSHED TEETH, WASHED SELF, WITH SUPERVISION. PT. TOLERATING HEART HEALTHY DIET. PT. GAIT STEADY, NEEDS EXTRA TIME, USES GB AND WALKER. PT. DOES NOT WANT TO TAKE GABAPENTIN. STATES SHE IS ALLERGIC TO A LOT OF THINGS AND DOES NOT WANT TO START ANYTHING NEW. PT. IS CALL LIGHT APPROPRIATE. BED ALARM AND CHAIR ALARM ARE ACTIVATED. WILL CONTINUE TO MONITOR.
[2020-09-24 19:03] VITALS: BP 146/57
--- NOTE | 2020-09-24 23:24 | NUR ---
PT ALERT AND ORIENTED X 4. AMB TO BR WITH WALKER AND ASSIST X 1 WITHOUT DIFFICULTY. CPAP ON DURING THE NIGHT. PT REFUSED OXYBUTIN AND GABAPENTIN AT HS. ALSO REFUSED VOLTAREN GEL. PT DENIES PAIN OR DISCOMFORT. BED ALARM ON FOR SAFETY. PT APPEARS TO BE SLEEPING ON HOURLY ROUNDS.
[2020-09-25 07:15] VITALS: BP 151/66
--- NOTE | 2020-09-25 10:39 | NUR ---
Chart review. unable to visit with deshawn marc she is working with therapy outside her room. She lives home alone, in house. has ramp, walker, cpap, shower chair and grab bars. she recently was at skilled rehab, [facility], where she was not happy and left AMA. will cont following as needed for dc needs.
--- NOTE | 2020-09-25 13:03 | NUR ---
Nutrition: pt admitted with general debility with falls to rehab unit. PMH: HTN, HLD, hepatitis, A, choly, obesity. Seen due to high risk screen for weight loss, poor intake. Pt reports eating 100% of meals other than 2 meals she didn't eat well. Understands how to order meals. Noted weight down 10# from weights in 2018, not significant. Pt reports no recent weight change. Vitamin D 24.9, REC add vitamin D supplement. Low nutrition risk.
--- NOTE | 2020-09-25 13:09 | NUR ---
Nutrition: Vitamin D deficiency noted. REC supplement
--- NOTE | 2020-09-25 18:14 | NUR ---
ASSUMED PATIENT CARE AT 0700. A/O X4. UP WITH STANDBY ASSISTED. DENIES PAIN. VSS. PROGRESSING TOWARDS POC GOALS.
[2020-09-25 19:14] VITALS: BP 131/49
--- NOTE | 2020-09-25 23:20 | NUR ---
PT ALERT AND ORIENTED X 4. AMB TO BR WITH WALKER AND ASSIST X 1 WITHOUT DIFFICULTY. CPAP ON DURING THE NIGHT. PT DENIES PAIN OR DISCOMFORT. BED ALARM ON FOR SAFETY. PT APPEARS TO BE SLEEPING ON HOURLY ROUNDS.
[2020-09-26 07:15] VITALS: BP 146/67
[2020-09-26] MEDS ORDERED: DEMADEX20 MG PO (13:27)
--- NOTE | 2020-09-26 13:57 | NUR ---
Team meeting. reported upper and lower ext swelling. Family lives hour away. life alert requested by deshawn. work on pt with medication management. BPCI. dc 10/03 HH ( pt, ot, nursing), magen family assist in home. speech eval while on acute rehab.
[2020-09-26 19:32] VITALS: BP 125/61
--- NOTE | 2020-09-27 01:51 | NUR ---
assumed care approx 1900 evening 09/26. pt alert and oriented x4, pleasant and cooperative. pt sitting up in recliner at change of shift watching baseball game on tv. pt took hs meds with water tolerating well. pt wearing cpap at present and appears to be sleeping soundly. pulse oximeter in place. bed alarm on and call light in reach. will continue to monitor.
[2020-09-27 07:15] VITALS: BP 162/62
--- NOTE | 2020-09-27 09:19 | NUR ---
PT WORKING WITH THERAPY AT THIS TIME. PT UP WITH WALKER WITH STAND-BY ASSIST AND STEADY GAIT. PT DENIES ANY PAIN. PT LUNGS CLEAR. PT USES CPAP FOR HS. PT LEFT ANKLE IS TURNED WHEN WALKING, PHYSICAL THERAPY IS WORKING ON GETTING HER A BRACE TO HELP STABALIZE LEFT ANKLE AND RIGHT PLACEMENT.
[2020-09-27 19:58] VITALS: BP 141/52
--- NOTE | 2020-09-28 03:24 | NUR ---
assumed care approx 1900 evening 09/27. pt alert and oriented x4, pleasant and cooperative. pt sitting in chair in room resting with brace on left foot. pt took meds with water tolerating well. pt appears to be sleeping with cpap on. bed alarm on and call light in reach. will continue to monitor.
[2020-09-28 08:18] VITALS: BP 126/46
--- NOTE | 2020-09-28 08:48 | NUR ---
PT SITTING UP IN CHAIR THIS AM. PT HAS BRACE TO LEFT ANKLE. PT USES WALKER WHEN AMBULATING WITH STEADY GAIT. PT USES PADS FOR STRESS INCON. PT DENIES ANY PAIN AT THIS TIME. PT KEEPS LEGS ELEVATED WHEN SITTING IN RECLINER. PT LUNGS CLEAR. NO COMPLAINTS AT THIS TIME.
--- NOTE | 2020-09-28 14:30 | NUR ---
Nutrition: Pt admitted with general debility with falls. PMH: HTN, HLD, hep A, choly, obesity. High risk screen for poor intake, weight loss. Pt had 2 meals she ate poorly initially on admit. Otherwise eating 75-100% of all meals. Understands menu ordering process. Weights down 10# from 2018-not significant. Vitamin D level low, RD recommended supplement which has been ordered. Low nutrition risk.
--- NOTE | 2020-09-28 14:30 | NUR ---
PT UP WALKING WITH THERAPY AND PT MOVED TO 501 AFTER WALK. PT FINISHED THERAPY IN NEW ROOM.
[2020-09-28 19:01] VITALS: BP 152/74
--- NOTE | 2020-09-29 02:51 | NUR ---
ASSUMED CARE AT 1900 OF 09/28. PATIENT IS A&OX4, FORGETFULL AT TIMES. DENIES PAIN. STANDBY ASSIST USING GB AND 4WW TO BATHROOM. USES CPAP OVERNIGHT. ORTHOTIC BRASE TO LEFT ANKLE WAS REMOVED BEFORE BED. CALL LIGHT W/IN REACH. NO CONCERNS AT THIS TIME WILL CONTINUE TO MONITOR.
[2020-09-29 06:02] LABS: ABSOLUTE NEUTROPHILS 3.6 thou/uL (1.4-8.2); BASOPHILS 0.4 % (0.0-2.0); EOSINOPHILS 8.9 % (0.0-3.0); HEMATOCRIT 30.7 % (37.0-47.0); HEMOGLOBIN 10.3 gm/dL (12.0-15.0); LYMPHOCYTES 22.3 % (24.0-44.0); MCH 29.8 pg (26.0-34.0); MCHC 33.5 g/dL (28.0-37.0); MCV 88.9 fL (80.0-100.0); PLATELET COUNT 155 thou/uL (150-400); POLYS 62.4 % (36.0-66.0); RBC 3.46 mil/uL (4.20-5.00); RDW 14.6 % (10.5-14.5); WBC 5.7 thou/uL (4.0-11.0)
[2020-09-29 06:26] LABS: CALCIUM 8.4 mg/dL (8.5-10.1); CREATININE 1.1 mg/dL (0.6-1.0); MAGNESIUM 2.1 mg/dL (1.8-2.4); POTASSIUM 4.4 mmol/L (3.5-5.1)
[2020-09-29 07:41] VITALS: BP 145/70
--- NOTE | 2020-09-29 09:05 | NUR ---
ASSUMED CARE OF PT AT 0715. PT IS A&OX4. WAS REPORTED THAT PT CAN BE FORGETFUL. IS ON ROOM AIR. DENIES PAIN IN L ANKLE. IS WT BEARING NISH. IS STABLE. IS UP WITH STANDBY ASSIST, GB, WALKER. FALL PRECAUTIONS & HOURLY ROUNDING CONTINUED THIS SHIFT. LABS & VITALS REVIEWED. PT IS UP IN RECLINER. ALARM IN PLACE. CALL LIGHT WITHIN REACH. WILL CONTINUE TO MONITOR.
[2020-09-29] MEDS ORDERED: GABAPENTIN 100100 MG PO (09:10)
[2020-09-29] MEDS ORDERED: VITAMIN D350 MC3 PO (09:14)
[2020-09-29] MEDS ORDERED: BENICAR40 MG PO (09:17)
--- NOTE | 2020-09-29 09:58 | NUR ---
Cont. following for dcp, still anticipating dc on 10/03. BPCI. HH (pt., Ot, nursing) and maximize family assist in the home.
[2020-09-29 20:32] VITALS: BP 148/66
--- NOTE | 2020-09-30 00:57 | NUR ---
ASSUMED CARE AT 1900 OF 09/29, PATIENT IS A&OX4 AND ABLE TO MAKE NEEDS KNOWN. PATIENT REMEBERED TO CALL FOR HER HS MEDICATIONS. STANDBY ASSIST USING GB AND FWW FOR TRANSFERS AND AMBULATION. PATIENT INDEPENDENTLY PERFORMED ADLS W/ SUPERVISION BEFORE GOING TO BED. DENIES PAIN OR SOB. REQUESTED TO HAVE ORTHOTIC BRACE ON LEFT ANKLE REMOVED AT HS. NO COCNERNS AT THIS TIME WILL CONTINUE TO MONITOR.
[2020-09-30 08:00] VITALS: BP 153/58
[2020-09-30 08:50] VITALS: BP 153/58
--- NOTE | 2020-09-30 11:09 | NUR ---
ASSUMED C/O PT AT 0700. PT. UP IN CHAIR. ASKED FOR MEDS PER ST REQUEST. A&OX4. PT. GAIT STEADY WITH GB AND WALKER. PT. UP TO BROOM WITH SBA. PT TOLERATING REGULAR DIET, DENIES PAIN, RA. WILLINGLY WORKS WITH THERAPIES. USES CALL LIGHT APPROPRIATELY. WILL CONTINUE TO MONITOR.
[2020-09-30 18:45] VITALS: BP 126/56
--- NOTE | 2020-10-01 | NUR ---
ASSUMED CARE AT 1900 OF 09/30. PATIENT IS A&OX4, DENIES PAIN OR SOB. ABLE TO MAKE NEEDS KNOWN, AND APPROPRIATELY CALLS FOR MEDICATIONS. STAND BY ASSIST USING GB AND 4WW FOR TRANSFER AND AMBULATION. PERFORMED ADLS INDEPENDENTLY W/ SUPERVISION WHILE GETTING READY FOR BED. CPAP ON OVERNIGHT, PATIENT CURRENTLY SLEEPING. NO ISSUES AT THIS TIME, WILL CONTINUE TO MONITOR.
[2020-10-01 07:15] VITALS: BP 132/43
--- NOTE | 2020-10-01 15:06 | NUR ---
PT ALERT AND ORIENTED. VSS. DENIED HAVING PAIN OR DISCOMFORT. UP IN THE CHAIR THIS SHIFT. NO CONCERNS AT THIS TIME. PT PROGRESSING WELL TOWARDS DISCHARGE GOAL.
[2020-10-01 19:22] VITALS: BP 146/59
--- NOTE | 2020-10-02 01:11 | NUR ---
PT AMBULATING TO BATHROOM WITH WALKER AND STANDBY ASSIST AND IS TOLERATING FAIR. DENIES NEED FOR PAIN MEDICATION. RESTING COMFORTABLY. NO NEEDS VOICED. CALL LIGHT WITHIN REACH. FREQUENT OBSERVATION.
--- NOTE | 2020-10-02 08:00 | NUR ---
PT UP TO BATHROOM THIS AM WITH WALKER. PT DIDN'T HAVE SHOES ON, PT HAS REG. SOCKS. PT STATED SHE HAS A HARD TIME GETTING SHOE ON LEFT FOOT. PT LUNGS CLEAR. PT BATHING SELF AT SINK, PT ASKED IF SHE IS GETTING SHOWER TODAY. PT DID CALL FOR HER MEDS THIS AM. PT LBM TODAY. PT ESCORTED TO CHAIR AND THIS NURSERY LABORER PUT ON SHOES. PT STATED SHE NEEDS TO WEAR GRIPPER SOCKS ON WHILE IN BED.
[2020-10-02 08:04] VITALS: BP 164/63
--- NOTE | 2020-10-02 09:30 | NUR ---
Cm notified by physical therapy that pt. might want outpt therapy at [facility] vs . cm will check to see if have any open slots for therapy.
--- NOTE | 2020-10-02 12:02 | PLAN ---
[facility] [place] [address] REHAB UNIT PLAN OF CARE Name: PILLO CORCORAN Room #: 501-A ADM IN M.R.#: [id number] Admission: 09/22/20 Attend Phys: Yayo Moss MD Discharge: Date of : 38 Report #: [id number] THIS REPORT FOR: cc: Julien De La Rosa MD, Curtis MD Smithson,Yayo Toscano MD ~ DOC #: [id number] Yayo Moss MD DATE OF SERVICE: 09/25/2020 PROGRESS NOTE AND OVERALL PLAN OF CARE HISTORY OF PRESENT ILLNESS: The patient is seen back today in followup. She is in no distress. Temperature 98.1, pulse 58, respirations 18, blood pressure 146/57. She is alert, follows basic 1-step commands. Lower extremity exam without change. No focal calf swelling. She has been working in therapies with transfers at a standby assistance level. She ambulated 28 feet contact guard with a front-wheeled walker. In occupational therapy, lower body dressing is mod assist with upper body dressing supervision. She appears well motivated. ASSESSMENT: 1. Generalized debilitation with falls. 2. Renal insufficiency. 3. Recent left thigh abscess, status post antibiotics. 4. Paroxysmal atrial fibrillation with anticoagulation, which was put on hold. 5. Ankle fracture, 05/03/2020, weightbearing as tolerated. 6. Hypertension. 7. Chronic diastolic heart failure. 8. History of heart block with symptomatic bradycardia, status post permanent pacemaker. PLAN: The overall plan of care is based on the pre-admission screen and information garnered from therapy assessments. 1. Estimated length of stay is probably 7-10 days. 2. Medical prognosis is reasonably good. 3. Anticipated interventions includes the interdisciplinary acute inpatient rehabilitation program. 4. Anticipated functional outcomes would be for the patient to become modified independent with transfers, mobility and ADLs, so she can return back to the home setting. 5. Discharge destination would be back home. She does live alone, but does have involved family. 6. Expected therapy by discipline includes PT and OT 1 and 1-1/2 hours per day each 5 days a week throughout the duration of the acute inpatient rehabilitation stay. [facility] [address] [place] [address] REHAB UNIT PLAN OF CARE Name: PILLO CORCORAN Room #: 501-A [facility] IN [facility].#: [id number] Admission: 09/22/20 Attend Phys: Yayo Moss MD Discharge: Date of : 39 Report #: [id number] ADDENDUM: The patient's prognosis for significant practical improvement within a reasonable period of time appears good. Given the patient's complex medical condition and risk of further medical complications, rehabilitation services could not be safely provided at the lower level of care such as a longterm facility. MD KIRSTY MariaS <ELECTRONICALLY SIGNED> By: Yayo Moss MD 10/02/20 1202 [id number] [id number] Yayo Moss MD /nt
--- NOTE | 2020-10-02 12:02 | H ---
[facility] [place] [address] HISTORY AND PHYSICAL Name: PILLO CORCORAN Room #: 501-A ADM IN M.R.#: [id number] Admission: 09/22/20 Attend Phys: Yayo Moss MD Discharge: Date of : 39 Report #: [id number] THIS REPORT FOR: cc: Julien De La Rosa MD, Curtis MD Smithson,Yayo Toscano MD ~ DOC #: [id number] Yayo Moss MD DATE OF SERVICE: 09/23/2020 HISTORY OF PRESENT ILLNESS: The patient is an 79-year-old female who was originally admitted to [facility] on 09/20/2020 with recent fall as family unable to meet her needs at home. She was readmitted back to the hospital. Cardiology was consulted. The pacemaker was interrogated. She is on Eliquis for history of atrial fibrillation and this was placed on hold with the recent falls. She has recently been treated for right leg abscess with antibiotics with a reaction of nausea, vomiting and dehydration. She has mild acute renal insufficiency and was given IV fluids. She was noted to have generalized weakness and history of falls and has been admitted for acute in-hospital inpatient rehabilitation. PAST MEDICAL HISTORY: As noted above. The patient has a history of hypertension, hyperlipidemia, bronchitis, hepatitis A, cholecystectomy, hysterectomy, left wrist fracture, osteoarthritis, obesity. She did have recent left ankle fracture in April of 2020. Apparently did not have surgery for it, is weightbearing as tolerated. MEDICATIONS: Please see the full medication listing. ALLERGIES: DILTIAZEM, PENICILLIN, NIACIN AND SIMVASTATIN. SOCIAL HISTORY: Lives at home alone in a house, ramp entrance, used a front wheeled walker, had been independent with ADLs prior to the fall. 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 FAMILY HISTORY: There is a son in [place] and daughter in [place], and she was in [place]. REVIEW OF SYSTEMS: Did not offer any complaints of chest pain, shortness of breath, abdominal discomfort. PHYSICAL EXAMINATION: GENERAL: An 79-year-old female was seen earlier. She was in no distress. VITAL SIGNS: Temperature 97.8, pulse 64, respirations 18, blood pressure 131/65. HEENT: Appeared to be benign. Cranial nerves are grossly intact. Facies are [address] [address] HISTORY AND PHYSICAL Name: PILLO CORCORAN Room #: [address] [place] [address] [place] ..#: [id number] Admission: 09/22/20 Attend Phys: Yayo Moss MD Discharge: Date of : 39 Report #: [id number] symmetric. CHEST: Sounded clear to auscultation. Former pacemaker site is well healed. ABDOMEN: Bowel sounds positive, nontender. GENITOURINARY AND RECTAL: Deferred. NEUROLOGIC: She follows basic commands without difficulty. EXTREMITIES: Functional range of motion of the upper extremity strength is probably grade 4-/5. DTRs are trace to 1. Lower extremities functional range of motion with strength grade 4-/5. Transfers are contact guard and gait is contact guard 175 feet with a front-wheeled walker. She needs moderate assistance for lower body dressing. ASSESSMENT: An 79-year-old female admitted with the following problem list: 1. Generalized debilitation with falls. 2. Renal insufficiency. 3. Recent left thigh abscess, status post antibiotics. 4. Paroxysmal atrial fibrillation with anticoagulation and was put on hold. 5. Ankle fracture 04/2020 weightbearing as tolerated. 6. Hypertension. 7. Chronic diastolic heart failure. 8. History of heart block with symptomatic bradycardia, status post permanent pacemaker. PLAN: The patient has been admitted for acute in-hospital inpatient rehabilitation. Please see the patient's previous and current functional status. As far as risk of complication, she has multiple medical comorbidities as noted above. Prognosis is reasonably good. Estimated length of stay probably at least 7 to 14 days. Potential barriers would include her multiple medical comorbidities and decreased functional status. The patient has an appropriate diagnosis for acute in-hospital inpatient rehabilitation. She does meet the medical necessity criteria and we will have the medical record consultant physicians continue to follow. She has the tolerance for therapies and has appropriate discharge goals back to the home setting. Yayo Moss MD DGS/AMI/CHRISTIANNE <ELECTRONICALLY SIGNED> By: Yayo Moss MD 10/02/20 1202 1215 [id number] Yayo Moss MD /nt
[2020-10-02 16:22] VITALS: BP 164/63
--- NOTE | 2020-10-02 16:30 | NUR ---
Cm notified by [facility] that they can accept for hh needs
--- NOTE | 2020-10-02 17:44 | NUR ---
PT FINISHED DINNER SITTING UP IN CHAIR. TALKED ABOUT PT DRINKING WATER AT HOME AND PT STATE SHE LIKES PROPEL AND WATER. PT STATED SHE USED TO DRINK [place], AND NOT MUCH WATER. PT STATED SHE IS DRINKING WATER NOW.
[2020-10-02 19:45] VITALS: BP 159/91
--- NOTE | 2020-10-03 02:49 | NUR ---
ASSUMED CARE AT 1900 OF 10/02. PATIENT IS A&OX4. ABLE TO MAKE NEEDS KNOWN, CALLS FOR MEDICATIONS APPROPRIATELY. STAND BY ASSIST OF 1 WITH TRANSFERS AND AMBULATION USING GB AND WALKER. PATIENT REQUIRED MINIMAL ASSIST WITH ADLS AT . NO COCERNS AT THIS TIME, WILL CONTINUE TO MONITOR.
[2020-10-03 08:50] VITALS: BP 133/72
[2020-10-03 09:00] VITALS: BP 133/72
--- NOTE | 2020-10-04 14:44 | NUR ---
Ramon received phone call from deshawn requested that oupt therapy orders be sent to [facility]. ramon faxed rx to [phone], phone [phone]. Per deshawn stated hh going to do 5 visit so i need to get on the waiting list now, thank you.
== END 2020-10-03 10:35 | disposition home health service (06) | DRG 948 ==
PROVIDERS: Nurse Practitioner; ADMIT Physical Medicine & Rehabilitation; ATTEND Physical Medicine & Rehabilitation
PROC: 5A09557 Assistance with Respiratory Ventilation, Greater than 96 Consecutive Hours, Continuous Positive Airway Pressure (ICD-10-PCS; principal; 2020-09-26)
DX: R53.81 Other malaise (principal); I50.32 Chronic diastolic (congestive) heart failure; I13.0 Hypertensive heart and chronic kidney disease with heart failure and stage 1 through stage 4 chronic kidney disease, or unspecified chronic kidney disease; I48.0 Paroxysmal atrial fibrillation; E78.5 Hyperlipidemia, unspecified; M19.90 Unspecified osteoarthritis, unspecified site; E66.9 Obesity, unspecified; Z60.2 Problems related to living alone; E86.0 Dehydration; R29.6 Repeated falls; I49.5 Sick sinus syndrome; N18.9 Chronic kidney disease, unspecified; G62.9 Polyneuropathy, unspecified; E55.9 Vitamin D deficiency, unspecified; E53.8 Deficiency of other specified B group vitamins; Z95.0 Presence of cardiac pacemaker; Z90.49 Acquired absence of other specified parts of digestive tract; Z90.710 Acquired absence of both cervix and uterus; Z68.36 Body mass index [BMI] 36.0-36.9, adult; Z88.8 Allergy status to other drugs, medicaments and biological substances; Z88.0 Allergy status to penicillin; Z85.828 Personal history of other malignant neoplasm of skin
CPT/HCPCS: 10112

== ENCOUNTER → 2021-01-05 | Outpatient (CLI) | payer OTHER, BC ==
[~2021-01-05] MED LIST changes: +ASA81BEC PO; +DEMADEX20 MG PO; +VITAMIN D350 MC3 PO
== END ==
LOC: SJCVC 13:24
PROVIDERS: ATTEND Internal Medicine
DX: R94.31 Abnormal electrocardiogram [ECG] [EKG] (principal); I48.91 Unspecified atrial fibrillation; I11.0 Hypertensive heart disease with heart failure; I50.32 Chronic diastolic (congestive) heart failure; I44.1 Atrioventricular block, second degree; R29.6 Repeated falls; R26.81 Unsteadiness on feet; E78.5 Hyperlipidemia, unspecified; Z79.82 Long term (current) use of aspirin; Z79.899 Other long term (current) drug therapy; Z88.1 Allergy status to other antibiotic agents; Z88.8 Allergy status to other drugs, medicaments and biological substances; Z88.0 Allergy status to penicillin